=== PATIENT | male | born 1995 | race Two or more races ===

== ENCOUNTER → 2019-07-20 | Outpatient (CLI) | payer BC ==
[~2019-07-20] MED LIST: GADOTERATE 2.5 MMOL/5 ML VIAL ONE; LIDOCAINE-MPF 1%, 5ML ONE; OMNIPAQUE 300 MG/ML, 10ML VIAL ONE; ROPivacaine/PF 0.2%, 10 ML ONE; TRIAMCINOLONE ACETONIDE 40 MG/ML, 1ML ONE
== END | disposition home or self-care (01) ==
LOC: RAD 13:48
PROVIDERS: ATTEND Physician Assistant Surgical
DX: M25.851 Other specified joint disorders, right hip (principal); M25.551 Pain in right hip
CPT/HCPCS: 73525; 73722; A9575; J2795; J3301; Q9967

== ENCOUNTER 2020-07-11 07:24 | Outpatient (CLI) | payer BC ==
[2020-07-11] MEDS ORDERED: TRIAMCINOLONE ACETONIDE 40 MG/ML, 1ML ONE (07:37)
[2020-07-11] MEDS ORDERED: LIDOCAINE-MPF 1%, 5ML ONE (07:37)
[2020-07-11] MEDS ORDERED: OMNIPAQUE 300 MG/ML, 10ML VIAL ONE (08:00)
[2020-07-11] MEDS ORDERED: GADOTERATE 2.5 MMOL/5 ML VIAL ONE (08:00)
[2020-07-11] MEDS ORDERED: ROPivacaine/PF 0.2%, 10 ML ONE (08:09)
== END 2020-07-11 23:59 | disposition home or self-care (01) ==
LOC: RAD 07:24
PROVIDERS: ATTEND Physician Assistant Surgical
DX: M25.552 Pain in left hip (principal); M24.152 Other articular cartilage disorders, left hip; M25.152 Fistula, left hip; M25.859 Other specified joint disorders, unspecified hip
CPT/HCPCS: 27093; 73525; 73722; A9575; J2795; J3301; Q9967